=== PATIENT | female | born 1970 | race Caucasian/White ===

== ENCOUNTER 2022-06-24 07:43 | Day surgery (SDC) | payer OTHER ==
[~2022-06-24] VITALS: Ht 157.5 cm; Wt 94.3 kg
[~2022-06-24 07:43] MED LIST: PRENATALS; TYLENOL
[2022-06-24] MEDS ORDERED: diphenhydrAMINE 50 MG/ML VIAL ONE (08:19)
[2022-06-24] MEDS ORDERED: fentaNYL citrate 0.05 MG/ML VIAL ONE ×2 (08:19)
[2022-06-24] MEDS ORDERED: LIDOCAINE 2% 100 MG/5 ML UJET TP ONE (08:19)
[2022-06-24] MEDS ORDERED: MIDAZOLAM 5 MG/5 ML VIAL ONE (08:19)
[2022-06-24] MEDS ORDERED: ONDANSETRON 4 MG/2 ML VIAL ONE (09:43)
[2022-06-24] MEDS ORDERED: ONDANSETRON 4 MG/2 ML VIAL IVP SCH (09:43)
[2022-06-24] MEDS ORDERED: ONDANSETRON 4 MG/2 ML VIAL IVP ONE (09:45)
[2022-06-24] MEDS ORDERED: MIDAZOLAM 2 MG/2 ML VIAL IVP ONE (11:45)
[2022-06-24] MEDS ORDERED: fentaNYL citrate 0.05 MG/ML VIAL IVP ONE (11:45)
== END 2022-06-24 10:15 | disposition home or self-care (01) ==
LOC: MOR 07:43 → MMU 07:44 → MOR 10:15
PROVIDERS: ATTEND Internal Medicine Gastroenterology
DX: K62.5 Hemorrhage of anus and rectum (principal); K57.30 Diverticulosis of large intestine without perforation or abscess without bleeding; I10 Essential (primary) hypertension; E11.9 Type 2 diabetes mellitus without complications; K21.9 Gastro-esophageal reflux disease without esophagitis; G43.909 Migraine, unspecified, not intractable, without status migrainosus; I25.2 Old myocardial infarction; Z80.0 Family history of malignant neoplasm of digestive organs; Z79.84 Long term (current) use of oral hypoglycemic drugs; Z79.899 Other long term (current) drug therapy; Z20.822 Contact with and (suspected) exposure to COVID-19
CPT/HCPCS: 45380; 81025; 87426; 88305; J2250; J2405; J3010; J1200